=== PATIENT | female | born 2000 | race Caucasian/White ===

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

== ENCOUNTER 2024-03-15 17:53 | Emergency (ER) | payer OTHER, MEDICAID ==
[~2024-03-15] VITALS: Ht 157.5 cm; Wt 57.2 kg
[~2024-03-15 17:53] MED LIST: LIDO20SO16 PO
[2024-03-15 17:57] VITALS: BP 134/88; PULSE 82; RESP 16; TEMP 99.1; O2SAT 100
[2024-03-15] MEDS: dexamethasone sod phosphate 10mg/ml inj IM STA (18:06)
[2024-03-15] MEDS ORDERED: ketorolac trometh. 30mg/ml inj. IM ONE (18:10)
[2024-03-15] MEDS: ketorolac tromethamine 15mg/ml inj. IM ONE (19:19)
[2024-03-15] MEDS: cyclobenzaprine 10mg tablet PO ONE (19:20)
[2024-03-15] MEDS ORDERED: CYCL-1 PO (19:21)
[2024-03-15] MEDS ORDERED: LIDO700A32 TOP (19:21)
== END 2024-03-15 19:39 | disposition home or self-care (01) ==
LOC: ER 17:54
DX: S13.4XXA Sprain of ligaments of cervical spine, initial encounter (principal); Z79.899 Other long term (current) drug therapy; V89.2XXA Person injured in unspecified motor-vehicle accident, traffic, initial encounter; Y93.89 Activity, other specified; Y92.89 Other specified places as the place of occurrence of the external cause; Y99.8 Other external cause status
CPT/HCPCS: 72050; 96372; 99283; J1885